=== PATIENT | female | born 1995 ===

== ENCOUNTER 2017-11-28 03:01 | Emergency (ER) | payer MEDICAID, OTHER ==
[2017-11-28] MEDS ORDERED: Lactated Ringer's 1,000 ML IV ONE (04:08)
--- NOTE | 2017-11-28 04:23 | OBHP ---
Datetime: 11/28/2017 04:09 IP Adm Impression: , intrauterine IP Admit Plan: Observation/Evaluation Admit Comment, IP Provider: @ 35.2 wks GA c/o ctx every 5 min since 9pm wiht nause, vomtiitng 3 x non bloody non bilious, denies fever, chills. pt dnies any lof, vb, +FM. 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 PMH: Denies PSH: denies FHX: non contribotr MEDS: prn NKDA SHX: negative etoh/tobacc/durgs A/P @ 35.2 wks GA breech presentation, tex -npo,ivh -admission labs -terbulataline -cont aurelia oadn efm -reevlaute -celesteone dw dr Salgado, construction project administrator covering physician Pelvic Type - PN: Adequate Extremities - PN: Normal Abdomen - PN: Normal Back - PN: Normal Breast - PN: Normal Lungs - PN: Normal Heart - PN: Normal Thyroid - PN: Normal Neurologic - PN: Normal HEENT - PN: Normal General - PN: Normal Presentation-Admit: Vertex FHR - Baseline A Provider: 120 Membranes, Provider: Intact Contraction Comments Provider: q 2-3 min Comments, ACOG Physical Exam: Bedside US; Breech, posterior placenta, Gestation - Est Wks by US: 35.2 EGA AdmitDate IP: 35.2 Vital Signs Provider: Reviewed; Within Normal Limits IP Chief Complaint: Uterine contractions NICHD Variability Prov Fetus A: Moderate 6-25bpm FHR Category Provider Fetus A: Category I NICHD Decel Fetus A IP Provider: None Dilatation, Provider: 0 Effacement, Provider: 0 Station, Provider: -3 Genitourinary Exam: Normal DTRs - PN: Normal
[2017-11-28 05:36] LABS: BASO % 0.1 % (0.0-2.0); EOS # 0.1 K/uL (0.0-0.7); EOS % 0.8 % (0.0-4.0); HEMOGLOBIN 11.1 g/dL (11.0-16.0); LYMPH % 28.9 % (20.0-40.0); MEAN CELL VOLUME 88.6 fL (81.0-99.0); MEAN CORPUSCULAR HEMOGLOBIN 29.5 pg (27.0-31.0); MEAN CORPUSCULAR HGB CONC 33.3 g/dL (33.0-37.0); MEAN PLATELET VOLUME 9.5 fL (7.2-11.7); MONO # 1.1 K/uL (0.0-0.8); MONO % 10.7 % (0.0-10.0); NEUT # 6.2 K/uL (1.8-7.0); NEUT % 59.5 % (50.0-75.0); NRBC % 0.1 % (0.0-2.0); RBC 3.76 Mil/uL (3.80-5.20); RED CELL DISTRIBUTION WIDTH 13.5 % (11.5-14.5); WHITE BLOOD COUNT 10.4 K/uL (4.8-10.8)
[2017-11-28 05:37] LABS: SQUAMOUS EPITHIAL 28 /hpf (0-5); URINE BACTERIA FEW (<OCC); URINE BILIRUBIN NEGATIVE (NEGATIVE); URINE BLOOD 1+ (NEGATIVE); URINE CLARITY Hazy (Clear); URINE COLOR Yellow (YELLOW); URINE GLUCOSE (UA) NORMAL (Normal); URINE LEUKOCYTE ESTERASE 3+ Leu/uL (Negative); URINE PROTEIN NEGATIVE (NEGATIVE); URINE UROBILINOGEN NORMAL mg/dL (0.2-1.0)
[2017-11-28 05:42] LABS: ALB/GLOB RATIO 1.1 (1.0-2.1); ALBUMIN 3.3 g/dL (3.5-5.0); ALT/SGPT 33 U/L (9-52); AMYLASE 82 U/L (30-110); AST/SGOT 25 U/L (14-36); BLOOD UREA NITROGEN 4 mg/dL (7-17); CALCIUM 9.2 mg/dl (8.6-10.4); GFR NON-AFRICAN AMERICAN > 60; LIPASE 91 U/L (23-300)
[2017-11-28] MEDS ORDERED: Betamethasone Soluspan 30 mg/5mL Inj Susp IM ONE (09:31)
--- NOTE | 2017-11-28 09:47 | OBPN ---
Datetime: 11/28/2017 09:42 IP Progress Plan: Discharge Membranes, Provider: Intact Contraction Comments Provider: irreuglar FHR - Baseline A Provider: 125 Gestation - Est Wks by US: 35.2 IP Progress Note Comment: pt sincere and examien francisd rperots feeling better, esthela any pain VSS VE: unchane EFM: Cat I TOCO: irruelgaer a/p P1 @ 35.2 wks GA not in labr -cleestone -dc home -pretemr labor purecaiotn given -rx Keftlex UA 3+ leuks -adised return samreen priscilla; 11/29 9am for 2nd does of celestone r/b/a/i hector patietgómez Salgado covering physician Vital Signs Provider: Reviewed; Within Normal Limits FHR Category Provider Fetus A: Category I NICHD Variability Prov Fetus A: Moderate 6-25bpm Dilatation, Provider: 0 Effacement, Provider: 0 Station, Provider: -3 NICHD Decel Fetus A IP Provider: None Datetime: 11/28/2017 04:09 Presentation-Admit: Vertex
[2017-11-28 14:56] VITALS: BP 104/55; PULSE 80; RESP 18; TEMP 97.1
== END 2017-11-28 10:54 | disposition home or self-care (01) ==
LOC: C.EROB 03:01
DX: O47.03 False labor before 37 completed weeks of gestation, third trimester (principal); Z3A.35 35 weeks gestation of pregnancy
CPT/HCPCS: 80053; 81001; 82150; 83690; 85025; 86592; 86850; 86900; 96372; 99283; J0702; J3105; J7120

== ENCOUNTER 2017-11-29 09:10 | Emergency (ER) | payer OTHER ==
[2017-11-29] MEDS ORDERED: Betamethasone Soluspan 30 mg/5mL Inj Susp IM ONE (10:17)
--- NOTE | 2017-11-29 20:30 | OBHP ---
Datetime: 11/29/2017 11:40 IP Adm Impression: , intrauterine IP Admit Plan: Observation/Evaluation Admit Comment, IP Provider: 22 yo female G1 with an IUP at 35.3 weeks and was admitted last PM with contractions and was treated with Magnesium sulfate and also received Celestone x 1 Pt was instructed to return for her 2nd dose of Celestone and here for that No complcaints, + FM, no LOF or VB No contractions perceived, or palpated or recorded NST reactive Received the 2nd dose of Celestone IM D/C home in S_S condition Will f/up with her doctor in 7-10 days or as needed labor precautions reviewed with patient and verbalized understanding Pelvic Type - PN: Adequate Extremities - PN: Normal Abdomen - PN: Normal Back - PN: Normal Breast - PN: Not Done Lungs - PN: Normal Heart - PN: Normal Thyroid - PN: Normal Neurologic - PN: Normal HEENT - PN: Normal General - PN: Normal Presentation-Admit: Vertex FHR - Baseline A Provider: 120 Membranes, Provider: Intact Gestation - Est Wks by US: 35.3 EGA AdmitDate IP: 35.3 Vital Signs Provider: Reviewed; Within Normal Limits IP Chief Complaint: Maternal discomfort NICHD Variability Prov Fetus A: Marked >25bpm NICHD Accel Fetus A IP Provider: 10X10 FHR Category Provider Fetus A: Category I NICHD Decel Fetus A IP Provider: None Dilatation, Provider: NA Genitourinary Exam: Normal DTRs - PN: Normal Datetime: 11/28/2017 09:42 Contraction Comments Provider: irreuglar Effacement, Provider: 0 Station, Provider: -3
--- NOTE | 2017-11-29 20:32 | OBDCSUM ---
Datetime: 11/29/2017 11:27 Discharged to, Provider: Home Follow up at, Provider: pmd Disch Instr Activity: Normal activity Disch Instr Diet: Regular Discharge Instructions, Provider: Routine instructions given Discharge Diagnosis, Provider: Labor Discharge Time: 11/29/2017 11:27 Follow up in weeks, Provider: 7-10 days Disch Referrals: None Contraception discussed, Prov: Yes Disch Activity Restrictions: No exercising; No lifting; No sexual activity; Nothing in vagina - Inte rcourse, tampons, douche Discharge Comment, Provider: 22 yo female G1 with an IUP at 35.3 weeks and was admitted last PM with contractions and was treated with Magnesium sulfate and also received Celestone x 1 Pt was instructed to return for her 2nd dose of Celestone and here for that No complcaints, + FM, no LOF or VB No contractions perceived, or palpated or recorded NST reactive Received the 2nd dose of Celestone IM D/C home in S_S condition Will f/up with her doctor in 7-10 days or as needed labor precautions reviewed with patient and verbalized understanding Contraception after Delivery: Undecided
[2017-11-29 21:03] VITALS: RESP 18
== END 2017-11-29 11:30 | disposition home or self-care (01) ==
LOC: C.EROB 09:10
DX: O26.93 Pregnancy related conditions, unspecified, third trimester (principal); Z3A.35 35 weeks gestation of pregnancy
CPT/HCPCS: 96372; 99283; J0702

== ENCOUNTER 2017-12-20 06:28 | Inpatient (IN) | payer BC, OTHER ==
[2017-12-20 06:59] VITALS: BMI 31.1
[2017-12-20] MEDS ORDERED: Lactated Ringer's 1,000 ML IV ONE (07:05)
[2017-12-20] MEDS ORDERED: cefOXitin IV 2 gm in Dextrose 2 GM/50 ML BAG IVPB ONE (07:05)
[2017-12-20] MEDS ORDERED: Sodium Citrate/Citric Acid 15 ml Sol PO ONE (07:05)
--- NOTE | 2017-12-20 07:14 | OBADHP ---
Datetime: 12/20/2017 07:07 Admit Comment, IP Provider: at 38+weeks came with ctxs started last night, irrg 10/01, no vb , l of+fm obhx primi pmh de med pnv all nkda psh den soch de SONO BREECH ve /-2 a/p at 38+weks breech in labor ADMIT TO L_D NPO/IVF LABS ANTHESUA AWARE SKIN ABXS INFORMED COSENT TAKEB Pelvic Type - PN: Adequate Extremities - PN: Normal Abdomen - PN: Normal Back - PN: Normal Breast - PN: Normal Lungs - PN: Normal Heart - PN: Normal Thyroid - PN: Normal Neurologic - PN: Normal HEENT - PN: Normal General - PN: Normal FHR - Baseline A Provider: 130 Contraction Comments Provider: q1-3 IP Hx Assessment: The History has been Reviewed and is Current Vital Signs Provider: Reviewed; Within Normal Limits IP Chief Complaint: Uterine contractions; Maternal discomfort NICHD Variability Prov Fetus A: Moderate 6-25bpm NICHD Accel Fetus A IP Provider: 15X15 FHR Category Provider Fetus A: Category I Dilatation, Provider: 2 Effacement, Provider: 60 Station, Provider: -2 Genitourinary Exam: Normal DTRs - PN: Normal EGA AdmitDate IP: 38.3 IP Adm Impression: Term, intrauterine IP Admit Plan: Admit to unit; Initiate Section protocol Datetime: 11/29/2017 11:40 Presentation-Admit: Vertex Membranes, Provider: Intact Gestation - Est Wks by US: 35.3 NICHD Decel Fetus A IP Provider: None Datetime: 11/28/2017 04:09 Comments, [facility] Physical Exam: Bedside US; Breech, posterior placenta,
[2017-12-20 07:42] LABS: BASO # 0.1 K/uL (0.0-0.2); BASO % 0.5 % (0.0-2.0); EOS # 0.2 K/uL (0.0-0.7); EOS % 1.3 % (0.0-4.0); LYMPH # 4.5 K/uL (1.0-4.3); LYMPH % 34.7 % (20.0-40.0); MEAN CELL VOLUME 88.1 fL (81.0-99.0); MEAN CORPUSCULAR HEMOGLOBIN 30.2 pg (27.0-31.0); MEAN CORPUSCULAR HGB CONC 34.3 g/dL (33.0-37.0); MEAN PLATELET VOLUME 9.7 fL (7.2-11.7); MONO # 1.2 K/uL (0.0-0.8); MONO % 9.4 % (0.0-10.0); NEUT # 6.9 K/uL (1.8-7.0); NEUT % 54.1 % (50.0-75.0); NRBC % 0.1 % (0.0-2.0); RBC 3.63 Mil/uL (3.80-5.20); RED CELL DISTRIBUTION WIDTH 13.1 % (11.5-14.5); WHITE BLOOD COUNT 12.9 K/uL (4.8-10.8)
[2017-12-20 08:06] LABS: ALB/GLOB RATIO 1.1 (1.0-2.1); ALBUMIN 3.5 g/dL (3.5-5.0); ALT/SGPT 21 U/L (9-52); AST/SGOT 20 U/L (14-36); BLOOD UREA NITROGEN 6 mg/dL (7-17); CALCIUM 9.1 mg/dl (8.6-10.4); GFR NON-AFRICAN AMERICAN > 60
[2017-12-20 08:20] LABS: SQUAMOUS EPITHIAL 42 /hpf (0-5); URINE BACTERIA OCC (<OCC); URINE BILIRUBIN NEGATIVE (NEGATIVE); URINE BLOOD 1+ (NEGATIVE); URINE CLARITY Hazy (Clear); URINE COLOR Amber (YELLOW); URINE GLUCOSE (UA) NORMAL (Normal); URINE LEUKOCYTE ESTERASE 3+ Leu/uL (Negative); URINE PROTEIN 1+ mg/dL (NEGATIVE)
[2017-12-20] MEDS ORDERED: cefOXitin IV 2 gm in Saline 2 GM/50 ML BAG IVPB ONE (08:31)
[2017-12-20] MEDS ORDERED: Sodium Citrate/Citric Acid 15 ml Sol ONE (08:31)
[2017-12-20] MEDS ORDERED: Oxytocin 10 Units/ml Inj ONE (08:31)
[2017-12-20] MEDS ORDERED: Oxytocin 20 units in LR 2,000 ML IV ONE (08:32)
[2017-12-20 08:46] LABS: BARBITURATES, UR NEGATIVE (NEGATIVE); BENZODIAZEPINES, UR NEGATIVE (NEGATIVE); OPIATES, UR NEGATIVE (NEGATIVE); PHENCYCLIDINE, UR NEGATIVE (NEGATIVE)
[2017-12-20] MEDS ORDERED: Morphine 1 mg/ml preservative-free Inj(Duramorph) ONE (09:03)
[2017-12-20] MEDS ORDERED: Midazolam 2 MG/2 ML VIAL ONE (09:38)
[2017-12-20] MEDS ORDERED: Oxycodone/Acetaminophen 5/325 mg Tab PO PRN ×4 (09:54→22:01)
[2017-12-20] MEDS ORDERED: Morphine 4 MG/ML VIAL ONE (10:14)
--- NOTE | 2017-12-20 12:23 | OBDS ---
DELIVERY PERSONNEL Delivery Doctor: Terrance Jane MD Scrub Nurse: Madisyn Soto Explosives Detonator: Rekha Jeffries RN Anesthesiologist: Dr. Whitt MATERNAL INFORMATION Delivery Anesthesia: Spinal Medications in Delivery: Pitocin 20 units IV, Cytotec 1000 mcg ID Estimated Blood Loss (ml): 800 Placenta Cultured: Yes Maternal Complications: None RN Comments: Live born baby boy, 9,9. Provider Comments: baby deliverd in double footling breecn 2 cord arrounfd neck reduced end clean no com LABOR SUMMARY EDC: 12/31/2017 00:00 No. Babies in Womb: 1 LABOR INFORMATION Group B Beta Strep: Negative STAGES OF LABOR Stage 3 hrs: 0 Stage 3 min: 1 CSECTION DELIVERY Primary Indication: Breech Presentation Secondary Indication: Breech Presentation CSection Urgency: Elective CSection Incidence: Primary Labor: No Labor Elective: Elective CSection Incision: Lower Uterine Transverse BABY A INFORMATION Delivery Date/Time: 12/20/2017 09:27 Method of Delivery: Born in Route : No : N/A Forceps: N/A Vacuum Extraction: N/A Shoulder Dystocia : No SHOULDER DYSTOCIA BABY A Infant Delivery Date/Time: 12/20/2017 09:27 PRESENTATION/POSITION BABY A Presentation: Breech Cephalic Presentation: N/A Breech Presentation: Double Footling PLACENTA INFORMATION BABY A Placenta Delivery Time : 12/20/2017 09:28 Placenta Method of Delivery: Spontaneous Placenta Status: Delivered SCORES BABY A Heart Rate 1 min: >100 bpm Resp Effort 1 min: Good Cry Reflex Irritability 1 min: Cough or Sneeze or Pulls Away Muscle Tone 1 min: Active Motion Color 1 min: Body [place], Extremities Blue Resuscitation Effort 1 min: N/A SCORE 1 MIN: 9 Heart Rate 5 min: >100 bpm Resp Effort 5 min: Good Cry Reflex Irritability 5 min: Cough or Sneeze or Pulls Away Muscle Tone 5 min: Active Motion Color 5 min: Body [place], Extremities Blue Resuscitation Effort 5 min: N/A SCORE 5 MIN: 9 INFANT INFORMATION BABY A Gestational Age at Delivery: 38.3 Gestational Status: Term Infant Outcome : Liveborn Condition : Stable Sex: Male IDENTIFICATION/MEDS BABY A ID Band Number: [id number] ID Band Location: Left Leg; Left Arm Sensor Applied: Yes Sensor Number: [id number] Sensor Location : Cord Clamp Vitamin K Given : Not Given Erythromycin Given: Not Given WEIGHT/LENGTH BABY A Infant Birthweight (gms): 3950 Weight (lb): 8 Weight (oz): 11 Length Inches: 20.50 Length cms: 52.1 CORD INFORMATION BABY A No. Cord Vessels: 3 Nuchal Cord : Around Neck x2, Loose Infant Cord pH Baby Arterial: yes Cord Blood Taken: Yes Suction: Mouth; Nose
[2017-12-20] MEDS: Simethicone 80 mg Chewtab PO SCH ×2 (13:18→17:52)
[2017-12-20 17:03] VITALS: RESP 18
[2017-12-21] MEDS: Simethicone 80 mg Chewtab PO SCH ×6 (01:36→22:02)
[2017-12-21 07:14] LABS: HEMOGLOBIN 9.7 g/dL (11.0-16.0); MEAN CELL VOLUME 88.8 fL (81.0-99.0); MEAN CORPUSCULAR HEMOGLOBIN 29.6 pg (27.0-31.0); MEAN CORPUSCULAR HGB CONC 33.4 g/dL (33.0-37.0); MEAN PLATELET VOLUME 9.3 fL (7.2-11.7); RBC 3.27 Mil/uL (3.80-5.20); RED CELL DISTRIBUTION WIDTH 12.9 % (11.5-14.5); WHITE BLOOD COUNT 16.8 K/uL (4.8-10.8)
[2017-12-21] MEDS: Oxycodone/Acetaminophen 5/325 mg Tab PO PRN ×4 (08:57→23:19)
[2017-12-21] MEDS: Prenatal Multivit/Folic Acid/Iron Tab PO SCH (09:02)
[2017-12-21] MEDS ORDERED: Bisacodyl 5mg EC Tab PO ONE (09:55)
[2017-12-21] MEDS ORDERED: Prenatal Multivit/Folic Acid/Iron Tab PO SCH (10:00)
[2017-12-22] MEDS: Oxycodone/Acetaminophen 5/325 mg Tab PO PRN ×4 (06:01→21:32)
[2017-12-22 07:17] LABS: BASO % 0.2 % (0.0-2.0); EOS # 0.3 K/uL (0.0-0.7); EOS % 1.9 % (0.0-4.0); HEMOGLOBIN 9.6 g/dL (11.0-16.0); LYMPH # 4.4 K/uL (1.0-4.3); LYMPH % 30.5 % (20.0-40.0); MEAN CELL VOLUME 87.8 fL (81.0-99.0); MEAN CORPUSCULAR HEMOGLOBIN 29.4 pg (27.0-31.0); MEAN CORPUSCULAR HGB CONC 33.4 g/dL (33.0-37.0); MEAN PLATELET VOLUME 9.2 fL (7.2-11.7); MONO # 1.5 K/uL (0.0-0.8); MONO % 10.6 % (0.0-10.0); NEUT # 8.2 K/uL (1.8-7.0); NEUT % 56.8 % (50.0-75.0); RBC 3.27 Mil/uL (3.80-5.20); RED CELL DISTRIBUTION WIDTH 13.4 % (11.5-14.5); WHITE BLOOD COUNT 14.4 K/uL (4.8-10.8)
[2017-12-22] MEDS: Prenatal Multivit/Folic Acid/Iron Tab PO SCH (09:39)
[2017-12-22] MEDS: Simethicone 80 mg Chewtab PO SCH ×4 (09:39→21:32)
--- NOTE | 2017-12-22 10:51 | OBPPN ---
Datetime: 12/22/2017 10:48 PP Pain Prov: Within normal limits PP Nausea Prov: Denies PP Flatus Prov: Yes PP BM Prov: Yes PP Heart Prov: Normal PP Lungs Prov: Normal PP Abdomen/Uterus Prov: Normal PP Lochia Prov: Normal PP Extremities Prov: Normal PP C/S Incision Prov: Normal PP Comments Phys Exam Prov: Abdomen: Soft, bowel sound presents; appropriately tender S/P POD #1. Pressure dressing is still on. Uterus is firm and slightly below the umbilicus PP Impression Prov: Normal progression PP Plan Prov: Continue present management PP Progress Note Prov: Patient was seen and examined at bedside. Patient states that she is doing we ll and pain is well- controlled. Patient denies symptoms of nausea, vomiting, fever, chills. Garnett wa s removed this AM. Patient denies passing flatus, bowel movement, calf tenderness, chest pain, palpit ations and shortness of breath. Patient is breast feeding. VS: See above; WNL PE: See above, WNL Labs: 12.9>11.0/32.0<278, 16.8>9.7/29.0<264, Rubella immune, B+ A/P: Patient is a 22 year old at 38 weeks with footling breech who is now via priamry l ow transverse POD #1 1. Stable, Afebrile 2. Pain is well-controlled 3. H/H stable, ferrous sulfate 325mg PO BID 4. Encourage out of bed to chair, ambulation and hydration 5. Encourage breast feeding 6. Garnett out, voiding trial 7. Monitor for bowel functions 8. Continue present post- management Datetime: 12/21/2017 07:41 PP Breasts Prov: Normal PP Progress Prov: Normal IP PP Procedures: None Vital Signs Provider PP: Reviewed
--- NOTE | 2017-12-22 10:54 | OBPPN ---
Datetime: 12/22/2017 10:48 PP Progress Note Prov: Patient was seen and examined at bedside. Patient states that she is doing we ll and pain is well- controlled. Patient denies symptoms of nausea, vomiting, fever, chills. Patient admits to passing flatus, bowel movement, urinating without difficulties, tolerating diet and ambulat ing without difficulties. Patient denies symptoms of fever, chills, nausea, vomiting, calf tenderness , chest pain, palpitations and shortness of breath. Patient is breast feeding. VS: See above; WNL PE: See above, WNL Labs: 12.9>11.0/32.0<278, 16.8>9.7/29.0<264, 14.4>9.6/28.7<275 Rubella immune, B+ A/P: Patient is a 22 year old at 38 weeks with footling breech who is now via priamry l ow transverse POD #2 1. Stable, Afebrile 2. Pain is well-controlled 3. H/H stable, ferrous sulfate 325mg PO BID 4. Encourage out of bed to chair, ambulation and hydration 5. Encourage breast feeding 6. Plans for D/C tomorrow 7. Continue present post- management
[2017-12-23] MEDS: Oxycodone/Acetaminophen 5/325 mg Tab PO PRN (02:01)
--- NOTE | 2017-12-23 07:35 | OBDCSUM ---
Datetime: 12/23/2017 07:31 Discharged to, Provider: Home Follow up at, Provider: Dr. Jane Disch Instr Activity: Normal activity; May be up to bathroom; May be up for meals; May Shower Disch Instr Diet: Regular Discharge Instructions, Provider: Routine instructions given Discharge Diagnosis, Provider: Term Delivered Discharge Time: 12/23/2017 07:31 Follow up in weeks, Provider: 1 week from date Disch Referrals: None Contraception discussed, Prov: Yes Disch Activity Restrictions: No exercising; No lifting; No sexual activity; Nothing in vagina - Inte rcourse, tampons, douche Discharge Comment, Provider: Please follow up at the clinic in 1 week from your date for i ncision check and check Nothing per vagina and no sexual intercourse for 6-8 weeks No heavy lifting for 6-8 weeks Please continue with hydration, ambulation. Please continue with vitamins and ferrous sulfate 325mg PO BID. Please take percocet and motrin as needed for pain. Please return to the hospital if symptoms of f ever, chills, nausea, vomiting, abdominal pain/tenderness, dizziness. Please take care Discharge Diagnosis Prov Other: 38.3 delivered by Contraception after Delivery: Depo-Provera; IUD
--- NOTE | 2017-12-23 07:50 | OBPPN ---
Datetime: 12/23/2017 07:16 PP Pain Prov: Within normal limits PP Nausea Prov: Denies PP Flatus Prov: Yes PP BM Prov: Yes PP Heart Prov: Normal PP Lungs Prov: Normal PP Abdomen/Uterus Prov: Normal PP Extremities Prov: Normal PP C/S Incision Prov: Normal PP Comments Phys Exam Prov: Abdomen: Soft, bowel sound presents; appropriately tender S/P POD #3. Pressure dressing is still on. Uterus is firm and slightly below the umbilicus PP Impression Prov: Normal progression PP Plan Prov: Discharge PP Progress Note Prov: Patient was seen and examined at bedside. Patient states that she is doing we ll and pain is well- controlled. Patient denies symptoms of nausea, vomiting, fever, chills. Patient admits to passing flatus, bowel movement, urinating without difficulties, tolerating diet and ambulat ing without difficulties. Patient denies symptoms of fever, chills, nausea, vomiting, calf tenderness , chest pain, palpitations, shortness of breath and dizziness. Patient is breast feeding. VS: See above or chart; WNL PE: See above, WNL Labs: 12.9>11.0/32.0<278, 16.8>9.7/29.0<264, 14.4>9.6/28.7<275 Rubella immune, B+ A/P: Patient is a 22 year old at 38 weeks with footling breech who is now via priamry l ow transverse POD #3 1. Stable, Afebrile 2. Pain is well-controlled 3. H/H stable, ferrous sulfate 325mg PO BID 4. Discharge today: Please follow up at the clinic in 1 week from your date for incision check and check, Nothing per vagina and no sexual intercourse for 6-8 weeks, No heavy lif ting for 6-8 weeks, please continue with hydration, ambulation. Please continue with vitamin s and ferrous sulfate 325mg PO BID. Please take percocet and motrin as needed for pain. Please return to the hospital if symptoms of fever, chills, nausea, vomiting, abdominal pain/tenderness, dizziness . Datetime: 12/22/2017 10:48 Vital Signs Provider PP: Reviewed; Within Normal Limits
[2017-12-23] MEDS: Prenatal Multivit/Folic Acid/Iron Tab PO SCH (09:40)
[2017-12-23] MEDS: Simethicone 80 mg Chewtab PO SCH (09:40)
[2017-12-23] MEDS ORDERED: Influenza Vaccine 60 MCG/0.5 ML SYR (3 yr & up) IM ONE (10:42)
--- NOTE | 2017-12-23 11:33 | PCM.PSYCH ---
Initial Psychiatric Evaluation - Initial Psychiatric Evaluation Type of Admission: Voluntary Legal Status: Capacity Chief Complaint (in patient's own words): "Anxious" History of Present Illness and Precipitating Events: Pt is cleared for d/c full note to follow Consulted to rule out depression. She is a 22 year old female who is single and living with her mother. 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 This is her first child who is a baby boy and the father of the baby is present as well. Her support system for the baby will include both of the baby's grandmothers. She reports feeling down since delivering the baby. She is excited about the baby but not about going home. She is anxious about how she will handle work, school, and the baby and is feeling overwhelmed. She also reports feeling worried and stressed about everything. Her appetite is intact but she is having trouble sleeping. He denies having feelings of harming herself or the baby. Past Medical History: Denies Psychiatric History: Denies Family History: Denies Current Medications: Active Medications Generic Name Dose Route Start Last Admin Trade Name Freq PRN Reason Stop Dose Admin Docusate Sodium 100 mg 12/20/17 10:00 12/23/17 09:39 Colace PO 100 mg BID ROGER Administration Ferrous Sulfate 325 mg 12/21/17 10:00 12/23/17 09:39 Feosol PO 325 mg BID ROGER Administration Ibuprofen 600 mg 12/20/17 09:54 12/23/17 09:46 Motrin Tab PO 600 mg Q6H PRN Administration Pain, Mild (1-3) Ondansetron HCl 4 mg 12/20/17 13:57 Zofran Inj IVP Q6H PRN Nausea/Vomiting Oxycodone/Acetaminophen 2 tab 12/21/17 07:27 12/23/17 02:01 Percocet 5/325 Mg Tab PO 12/24/17 07:28 2 tab Q4H PRN Administration Pain, severe (8-10) Oxycodone/Acetaminophen 1 tab 12/21/17 07:27 12/22/17 21:32 Percocet 5/325 Mg Tab PO 12/23/17 22:02 1 tab Q4H PRN Administration Pain, moderate (4-7) Multivit/Folic Acid/Iron 1 tab 12/20/17 10:00 12/23/17 09:40 PO 1 tab DAILY ROGER Administration Simethicone 80 mg 12/20/17 10:00 12/23/17 09:40 Mylicon Chew Tab PO 80 mg QID ROGER Administration Past Psychiatric History - Past Psychiatric History Pertinent Medical Hx (Current Medical&Sleep Prob, Allergies): Allergies Allergy/AdvReac Type Severity Reaction Status Date / Time No Known Allergies Allergy Verified 11/28/17 04:06 Ferrous Sulfate [Feosol] 325 mg PO BID 30 Days #60 tab 12/23/17 Pnv with Ca,No.72/Iron/FA [ Vitamins Plus Low Iron] 1 tab PO DAILY 30 Days #30 tab 12/23/17
[2017-12-23 20:11] VITALS: BP 105/62; PULSE 89; TEMP 98.1; O2SAT 99
== END 2017-12-23 15:20 | disposition home or self-care (01) | DRG 788 ==
LOC: C.EROB 06:28 → C.4D 07:06 → C.4M 13:10
PROVIDERS: ADMIT Obstetrics & Gynecology; ATTEND Obstetrics & Gynecology
PROC: 10D00Z1 Extraction of Products of Conception, Low, Open Approach (ICD-10-PCS; principal; 2017-12-20)
DX: O32.8XX0 Maternal care for other malpresentation of fetus, not applicable or unspecified (principal); O69.1XX0 Labor and delivery complicated by cord around neck, with compression, not applicable or unspecified; Z3A.38 38 weeks gestation of pregnancy; Z37.0 Single live birth